=== PATIENT | male | born 1980 | race Caucasian/White ===

== ENCOUNTER 2022-01-11 18:01 | Emergency (ER) | payer OTHER ==
[~2022-01-11] VITALS: Ht 167.6 cm; Wt 86.6 kg
[2022-01-11] MEDS ORDERED: CEPHALEXIN500 M1 PO (20:01)
--- OUTSIDE RECORDS SUMMARY | 2022-01-11 21:44 | XMS ---
PreManage Notification: LYNDA WEBB Security Commander [employer] Events No recent Security Events currently on file [facility] There are no care providers on record at this time. Sridhar has no Care Guidelines for this patient. Teresita VISIT COUNT (12 MO.) 1 KITA Feng TOTAL 1 NOTE: Visits indicate total known visits. ED/UCC VISIT TRACKING (12 MO.) 01/11/2022 18:02 [facility] [place] TYPE: Emergency COMPLAINT: - SWELLING/BODY PART INPATIENT VISIT TRACKING (12 MO.) No inpatient visits to display in this time frame [email or web address]
[2022-01-11] MEDS ORDERED: DOXYCYCLINE HY100 MG PO (22:01)
== END 2022-01-12 00:30 | disposition home or self-care (01) ==
LOC: ED 18:01
DX: L03.116 Cellulitis of left lower limb (principal); L03.115 Cellulitis of right lower limb
CPT/HCPCS: 36415; 80053; 85025; 90471; 90714; 96365; 96366; 96375; 99283-25; J1170; J2405; J3370; J7030; J7060

== ENCOUNTER 2022-01-17 15:13 | Inpatient (IN) | payer BC ==
[~2022-01-17] VITALS: Ht 167.6 cm; Wt 89.0 kg
[~2022-01-17 15:13] MED LIST: CEPHALEXIN500 M1 PO; DOXYCYCLINE HY100 MG PO
--- OUTSIDE RECORDS SUMMARY | 2022-01-17 15:20 | XMS ---
PreManage Notification: KILEY WEBB Security Labor Contractor Events No recent Security Events currently on file CRITERIA MET - [facility] - 2 Visits in 30 Days CARE PROVIDERS There are no care providers on record at this time. Sridhar has no Care Guidelines for this patient. [facility] NOTE: Visits indicate total known visits. ED/C VISIT TRACKING (12 MO.) 01[facility]17[facility]2022 15[facility] COMPLAINT: - PAIN IN FEET 01/11/2022 18:02 [facility] TYPE: Emergency COMPLAINT: - SWELLING/BODY PART INPATIENT VISIT TRACKING (12 MO.) No inpatient visits to display in this time frame [email or web address]
[2022-01-17] MEDS ORDERED: TESTIM5 GM IM (16:30)
[2022-01-20] MEDS ORDERED: AMLODIPINE BESYL5 MG PO (12:13)
[2022-01-20] MEDS ORDERED: BACTRIM DS TAB1 EACH PO (12:14)
== END 2022-01-20 13:30 | disposition home or self-care (01) | DRG 603 ==
LOC: ED 15:13 → MS 19:45
PROVIDERS: ADMIT Internal Medicine; ATTEND Internal Medicine
DX: L03.116 Cellulitis of left lower limb (principal); L03.115 Cellulitis of right lower limb; I10 Essential (primary) hypertension; E29.1 Testicular hypofunction; Z20.822 Contact with and (suspected) exposure to COVID-19
CPT/HCPCS: 36415; 80048; 80053; 80202; 82565; 83605; 83735; 84520; 85025; 86140; 87040; 99284; A9270; C9803; J3370; J7030; J7060; U0003

== ENCOUNTER 2022-02-05 21:58 | Emergency (ER) | payer BC ==
[~2022-02-05] VITALS: Ht 167.6 cm; Wt 89.0 kg
[~2022-02-05 21:58] MED LIST changes: +AMLODIPINE BESYL5 MG PO; +BACTRIM DS TAB1 EACH PO; +TESTIM5 GM IM
--- OUTSIDE RECORDS SUMMARY | 2022-02-05 22:00 | XMS ---
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 Sridhar has no Care Guidelines for this patient. Teresita VISIT COUNT (12 MO.) [facility] TOTAL 3 NOTE: Visits indicate total known visits. ED/C VISIT TRACKING (12 MO.) 02/05/2022 21:[address] [facility] [place] TYPE: Emergency COMPLAINT: - FOOT SWELLING 01/17/2022 15:14 [facility] OR TYPE: Emergency COMPLAINT: - PAIN IN FEET 01/11/2022 18:02 [facility] OR TYPE: Emergency COMPLAINT: - SWELLING/BODY PART DIAGNOSES: - Cellulitis of left lower limb - Other specified soft tissue disorders - Cellulitis of right lower limb INPATIENT VISIT TRACKING (12 MO.) 01/17/2022 19:45 [facility] OR TYPE: Medical Surgical COMPLAINT: - CELLULITIS, BILATERAL LEG PAIN DIAGNOSES: - Essential (primary) hypertension - Cellulitis of right lower limb - Contact with and (suspected) exposure to COVID-19 - Contact with and (suspected) exposure to COVID-19 - Cellulitis of right lower limb - Cellulitis of left lower limb - Testicular hypofunction - Testicular hypofunction - Essential (primary) hypertension [id number]
[2022-02-05] MEDS ORDERED: NYSTATIN15 G1 TOP (22:43)
[2022-02-05] MEDS ORDERED: LASIX20 MG PO (22:43)
== END 2022-02-05 23:20 | disposition home or self-care (01) ==
LOC: ED 21:58
DX: R60.0 Localized edema (principal); B35.3 Tinea pedis; Z79.899 Other long term (current) drug therapy
CPT/HCPCS: 36415; 83880; 85025; 99284

== ENCOUNTER 2024-07-22 04:28 | Emergency (ER) | payer OTHER ==
[~2024-07-22] VITALS: Ht 167.6 cm; Wt 105.0 kg
[~2024-07-22 04:28] MED LIST changes: +LASIX20 MG PO; +NYSTATIN15 G1 TOP
[2024-07-22] MEDS ORDERED: CEPHALEXIN500 M1 PO (05:09)
[2024-07-22] MEDS ORDERED: NASAL DECONGEST30 MG PO (05:09)
[2024-07-22] MEDS ORDERED: BACTRIM DS TAB1 EACH PO (05:09)
[2024-07-22 05:15] LABS: BASOPHILS 0.6 % (0-2); EOSINOPHILS 1.4 % (0-6); HEMATOCRIT 39.9 % (35.0-50.0); HEMOGLOBIN 13.1 g/dL (12.0-18.0); LYMPHOCYTES 12.7 % (24-44); MCH 27.5 (27-36); MCHC 32.9 g/dl (30-36); MCV 83.7 fl (81-99); MONOCYTES 11.4 % (0-12); NEUTROPHILS 73.9 % (39-80); PLATELET COUNT 295 K/uL (140-440); RBC 4.77 M/ul (4.3-5.7); RDW 14.9 (10.5-15.0)
[2024-07-22] MEDS ORDERED: HYDROCODONE BIT/ACETAMINOPHEN 5/325 MG 1 TAB HOME.PACK PO PRN (05:15)
[2024-07-22] MEDS ORDERED: CEPHALEXIN MONOHYDRATE 500 MG HOME.PACK PO ONE (05:15)
[2024-07-22] MEDS ORDERED: TRIMETHOPRIM/SULFAMETHOXAZOLE 1 EA HOME.PACK PO ONE (05:15)
[2024-07-22 05:33] VITALS: BP 161/109
== END 2024-07-22 05:33 | disposition home or self-care (01) ==
LOC: ED 04:28
PROVIDERS: Emergency Medicine
DX: L03.115 Cellulitis of right lower limb (principal)
CPT/HCPCS: 36415; 85025; 99283; A9270